=== PATIENT | female | born 1990 | race Asian ===

== ENCOUNTER 2017-07-10 12:44 | Outpatient (CLI) | payer SELFPAY ==
--- NOTE | 2017-07-10 15:57 | XRAY Report ---
TWO VIEW CHEST: 07/10/2017 CLINICAL INDICATION: Routine pre-employment physical. FINDINGS: Frontal and lateral views of the chest demonstrate a normal cardiac silhouette. The lungs are clear. No effusion or pneumothorax is present. IMPRESSION: NORMAL CHEST. NO EVIDENCE OF ACTIVE TUBERCULOSIS. JOB #: [id number] EXT JOB #:[id number]
== END 2017-07-10 12:45 | disposition home or self-care (01) ==
LOC: DI 12:44
PROVIDERS: ATTEND Family Medicine
DX: Z02.1 Encounter for pre-employment examination (principal)
CPT/HCPCS: 71020